=== PATIENT | female | born 1945 | race Caucasian/White ===

== ENCOUNTER 2020-01-25 11:20 | Emergency (ER) | payer OTHER ==
--- OUTSIDE RECORDS SUMMARY | 2020-01-25 11:31 | XMS REPORT ---
:1945 Author Organization eClinicalWorks Care Team Providers Name Role Phone Morales, Na Provider Role Unavailable Allergies No Known Allergies Problems Problem Type Condition Code Onset Dates Condition Statu s Problem Colles' fracture S52.539A Active Problem Primary insomnia F51.01 Active Problem Migraine, unspecified, G43.911 Activ e intractable, with status migrainosus Problem Iron deficiency anemia due to D50.8 Active dietary causes Problem Complete tear of left rotator cuff M75.122 Active Problem Primary osteoarthritis of left M17.12 Active knee Problem Incomplete tear of left rotator M75.112 Active cuff Problem Osteopenia, unspecified location M85.80 Active Problem Other specific arthropathies, not M12.812 Active elsewhere classified, left shoulder Problem Unspecified rotator cuff tear or M75.102 Active rupture of left shoulder, not specified as traumatic Assessment Hypothyroidism E03.9 Active Problem Depression F32.9 Active Problem Anemia D64.9 Active Problem Other osteoporosis M81.8 Active Problem GERD (gastroesophageal reflux K21.9 Active disease) Problem Disc disorder M51.9 Active Problem Hypothyroidism E03.9 Active Medications Medication Code Code Instructions Start End Status Dosage System Date Date Levothyroxine [facility] [id number] 125 MCG Orally Active 1 tablet Sodium Once a day in the morning on an empty stomach Results No Known Results Summary Purpose eClinicalWorks Submission
--- OUTSIDE RECORDS SUMMARY | 2020-01-25 11:31 | XMS REPORT | Continuity of Care Document ---
:1945 Author Organization [facility] t Address [address] [place] [address] Care Team Providers Name Role Phone Unavailable Unavailable Unavailable Problems Condition Condition Condition Status Onset Resolution Last Treating Co mments Source Name Details Category Date Date Treatment Clinician Date Disc Disc Problem Active [facility] Anemia Anemia Problem [facility] Depression Depression Problem [facility] Osteopenia Osteopenia Problem Active [facility] , [facility] unspecifie unspecifie Me moria d location d location l Outpati ent Clinics Other Other Problem Active [facility] osteoporos osteoporos [facility] Primary Primary Problem Active [facility] insomnia insomnia [facility] Hypothyroi Hypothyroi Problem Active [facility] dism dism [facility] GERD GERD Problem Active [facility] (gastroeso (gastroeso [facility] - phageal phageal [facility]oria reflux reflux l disease) disease) Outpat i ent Clinics Migraine, Migraine, Problem Active [facility] unspecifie unspecifie [facility] - d, d, [facility] intractabl intractabl l e, with e, with Outpati status status ent migrainosu migrainosu Cl inics s s Colles' Colles' Problem Active [facility] fracture [facility] Incomplete Incomplete Problem Active [facility] tear of tear of [facility] - left left [facility] rotator rotator l cuff cuff Outpati ent Clinics Unspecifie Unspecifie Problem Active [facility] d rotator d rotator Luke s - cuff tear cuff tear Placido mirella or rupture or rupture l of left of left Outpati shoulder, shoulder, ent not not Clinics specified specified as as traumatic traumatic Complete Complete Problem [facility] of [facility] left left [facility] rotator rotator l cuff cuff Outpati ent Clinics Other Other Problem Active [facility] specific specific [facility] - arthropath arthropath Me moria ies, not ies, not l elsewhere elsewhere Outp ati classified classified en t , left , left Clinics shoulder shoulder Iron Iron Problem Active [facility] deficiency deficiency [facility] - anemia due anemia due Me moria to dietary to dietary l causes causes Outpati ent Clinics Primary Primary Problem Active [facility] osteoarthr osteoarthr [facility] - itis of itis of [facility] left knee left knee l Outpati ent Clinics Allergies, Adverse Reactions, Alerts Allergy Allergy Status Severity Reaction(s) Onset Inactive Treating Comm ents Source Name Type Date Date Clinician shellfis Adverse Active hives [facility] Reaction [facility] Medications Ordered Filled Start Stop Current Ordering Indication Dosage Frequency Signature Comments Components Source Medication Medication Date Date Medication? Clinician (SIG) Name Name Levothyroxi Levothyroxi Yes Na Morales [address] [facility] ne Sodium ne Sodium in the [place] - morning on [facility] an empty l stomach [facility] Procedures This patient has no known procedures. Encounters Start End Encounter Admission Attending Care Care Encounter Source Date/Time Date/Time Type Type Clinicians Facility Department ID 2019-12-24 2019-12-24 [facility] [id number] [facility] 14:58:00 14:58:00 [facility] Medicine [facility] 2019-09-24 2019-09-24 [facility] [id number] [facility] 10:56:00 10:56:00 [facility] Medicine [facility] 2019-08-03 2019-08-03 [facility] [id number] [facility] 08:40:00 08:40:00 [facility] Medicine l [facility] 2019-06-01 2019-06-01 [facility] [id number] [facility] 08:20:00 08:20:00 [facility] Medicine [facility] 2019-05-25 2019-05-25 [facility] [id number] 08:06:00 08:06:00 t [place] [employer] [facility] ent Clinics 2019-04-02 2019-04-02 [facility] [id number] [address] 08:00:00 08:00:00 t [place] [employer] [facility] ent Clinics 2019-03-02 2019-03-02 [facility] [id number] [address] 08:20:00 08:20:00 t [place] [employer] [facility] ent Clinics 2019-02-20 2019-02-20 [facility] [id number] [address] 06:13:00 06:13:00 t [place] [employer] [facility] ent Clinics 2018-09-29 2018-09-29 [facility] [id number] 09[facility]00:00 09:00:00 t Bone [facility] ent Clinics 2018-06-30 2018-06-30 [facility] [id number] 08:45:00 08:45:00 t ADITU [facility] ent Clinics 2018-03-12 2018-03-12 [facility] [id number] [facility] 12:07:00 12:07:00 t [facility] ent Clinics 2018-03-11 2018-03-11 [facility] [id number] [facility] 09:00:00 09:00:00 t [facility] ent Clinics 2018-03-03 2018-03-03 [facility] [id number] [facility] 14:06:00 14:06:00 t Bone [facility] ent Clinics 2018-02-28 2018-02-28 [facility] [id number] 11:27:00 11:27:00 t Bone [facility] ent Clinics 2018-02-27 2018-02-27 Outpatient Alec Michaelt [id number] [facility] 09:00:00 09:00:00 t [facility] ent Clinics 2018-01-29 2018-01-29 Outpatient Alec Michaelt [id number] [facility] 08:13:00 08:13:[facility] [address] [facility] [place] [facility] ent [facility] 2018-01-28 2018-01-28 Outpatient Alec Michaelt [id number] 08:15:00 08:15:[address] [employer] [facility] ent [facility] Results This patient has no known results.
--- NOTE | 2020-01-25 12:12 | RAD REPORT ---
EXAM DESCRIPTION: CT - Head Brain Wo Cont - 01/25/2020 12:01 pm CLINICAL HISTORY: Head injury status post fall COMPARISON: None TECHNIQUE: Computed axial tomography of the head was obtained. IV contrast was not requested. All CT scans are performed using dose optimization technique as appropriate and may include automated exposure control or mA/KV adjustment according to patient size. FINDINGS: Left frontal scalp hematoma. An intracranial bleed is not noted The ventricles are normal in caliber. No extra-axial fluid collection is noted. Fluid within the sinuses/ mastoids is not seen. IMPRESSION: No acute intracranial abnormality is seen. If patient's symptoms persist MRI of the bra in would be recommended.
[2020-01-25] MEDS ORDERED: DERMABOND SKIN ADHESIVE TOP ONE (12:32)
--- NOTE | 2020-01-25 12:40 | EDPHYS ---
Physician Documentation [facility] Name: Keke Wills Age: 74 yrs Sex: Female : 1945 Arrival Date: 01/25/2020 Time: 11:22 Bed 25 Private MD: Carolyn Morales ED Physician Nader Cifuentes HPI: 01/24 12:32 This 74 yrs old Female presents to ER via Ambulatory with complaints of Fall rn Injury, Facial Injury. 12:32 Details of fall: The patient fell from an upright position, while standing. Onset: The rn symptoms/episode began/occurred just prior to arrival. Associated injuries: The patient sustained injury to the head. Severity of symptoms: At their worst the symptoms were mild, in the emergency department the symptoms are unchanged. The patient has not experienced similar symptoms in the past. Reports tripped over lawnmower, + left forehead injury and laceration, no LOC, no bloodthinners, no vomiting, remembers all events. . Historical: - Allergies: 11:39 SHELLFISH; ca1 - PMHx: 11:39 chronic back pain; Depression; Hypothyroidism; ca1 - PSHx: 11:39 Tonsillectomy; Hysterectomy; ; bunion surgery; Cholecystectomy; ulcer surgery; ca1 - Immunization history:: Adult Immunizations up to date, Last tetanus immunization: unknown. - Social history:: Smoking status: Patient denies any tobacco usage or history of. - Immunization history: Last tetanus immunization: - up to date. - Family history:: not pertinent. - Hospitalizations: : No recent hospitalization is reported. ROS: 12:32 Constitutional: Negative for fever, chills, and weight loss, Eyes: Negative for injury, rn pain, redness, and discharge, Neck: Negative for injury, pain, and swelling, Cardiovascular: Negative for chest pain, palpitations, and edema, Respiratory: Negative for shortness of breath, cough, wheezing, and pleuritic chest pain, Abdomen/GI: Negative for abdominal pain, nausea, vomiting, diarrhea, and constipation, MS/Extremity: Negative for injury and deformity, Skin: + laceration left forehead Neuro: Negative for weakness, numbness, tingling, and seizure. Exam: 12:32 Constitutional: This is a well developed, well nourished patient who is awake, alert, rn and in no acute distress. Head/Face: Normocephalic, + left forehead hematoma and 2cm superficial laceration at center of hematoma. No depression. Eyes: Pupils equal round and reactive to light, extra-ocular motions intact. Lids and lashes normal. Conjunctiva and sclera are non-icteric and not injected. Cornea within normal limits. Neck: Trachea midline, no masses palpated Cardiovascular: Regular rate and rhythm No pulse deficits. Respiratory: No increased work of breathing, no retractions or nasal flaring. Abdomen/GI: soft, non-tender Skin: Warm, dry MS/ Extremity: Pulses equal, no cyanosis. Neurovascular intact. Full, normal range of motion. Equal circumference. Neuro: Awake and alert, GCS 15, oriented to person, place, time, and situation. Cranial nerves II-XII grossly intact. Motor strength 5/5 in all extremities. Sensory grossly intact. Cerebellar exam normal. Vital Signs: 11:36 BP 159 / 84; Pulse 78; Resp 16 S; Temp 98.8(O); Pulse Ox 99% on R/A; Weight 59.87 kg ca1 (R); Height 5 ft. 1 in. (154.94 cm) (R); 13:00 BP 147 / 79; Pulse 71; Resp 17; Temp 98.5; Pulse Ox 98% ; bp 11:36 Body Mass Index 24.94 (59.87 kg, 154.94 cm) ca1 Karel Coma Score: 11:45 Eye Response: spontaneous(4). Verbal Response: oriented(5). Motor Response: obeys bp commands(6). Total: 15. Trauma Score (Adult): 11:45 Eye Response: spontaneous(1); Verbal Response: oriented(1); Motor Response: obeys bp commands(2); Systolic BP: > 89 mm Hg(4); Respiratory Rate: 10 to 29 per min(4); Karel Score: 15; Trauma Score: 12 Laceration: 12:32 Wound Repair of 2cm ( 0.8in ) subcutaneous laceration to left forehead. Distal rn neuro/vascular/tendon intact. Wound prep: Extensive cleansing by nurse, Wound explored. Skin closed with 1 thin layer Adhesive skin closure using Dermabond. Patient tolerated well. MDM: 11:41 Patient medically screened. rn 12:32 Differential diagnosis: abrasion, closed head injury, contusion, laceration. Data rn reviewed: vital signs, nurses notes, radiologic studies, CT scan, and as a result, I will discharge patient. Counseling: I had a detailed discussion with the patient and/or guardian regarding: the historical points, exam findings, and any diagnostic results supporting the discharge/admit diagnosis, radiology results, the need for outpatient follow up, to return to the emergency department if symptoms worsen or persist or if there are any questions or concerns that arise at home. Response to treatment: the patient's symptoms have mildly improved after treatment, and as a result, I will discharge patient. Special discussion: Based on the patient's history, exam and DX evaluation, there is no indication for emergent intervention or inpatient TX. It is understood by the patient/guardian that if the SXs persist or worsen they need to return immediately for re-evaluation. I discussed with the patient/guardian in detail that at this point there is no indication for admission to the hospital. It is understood, however, that if the symptoms persist or worsen the patient needs to return immediately for re-evaluation. 01/24 11:47 Order name: CT Head Brain wo Cont; Complete Time: 12:13 rn 01/24 11:47 Order name: Wound Care; Complete Time: 12:39 rn 01/24 12:41 Order name: Dermabond; Complete Time: 12:41 ss Administered Medications: No medications were administered Disposition: 01/25/20 12:39 Discharged to Home. Impression: Superficial injury of head, Facial laceration. - Condition is Stable. - Discharge Instructions: Head Injury, Adult, Facial Laceration. - Medication Reconciliation Form, Thank You Letter, Antibiotic Education, Prescription Opioid Use form. - Follow up: Private Physician; When: As needed; Reason: Recheck today's complaints, Re-evaluation by your physician. - Problem is new. - Symptoms have improved. Signatures: Dispatcher [employer] EDMS Nader Cifuentes MD MD rn Smirch, Shelby, RN RN ss Peltier, Brian, RN RN bp Acob, Cheryl, RN RN [facility] Corrections: (The following items were deleted from the chart) 12:35 12:32 Constitutional: This is a well developed, well nourished patient who is awake, rn alert, and in no acute distress. Head/Face: Normocephalic, + left forehead hematoma and 2cm superficial laceration at center of hematoma. No depression. Neck: Trachea midline, no masses palpated Cardiovascular: Regular rate and rhythm No pulse deficits. Respiratory: No increased work of breathing, no retractions or nasal flaring. Abdomen/GI: soft, non-tender Skin: Warm, dry MS/ Extremity: Pulses equal, no cyanosis. Neurovascular intact. Full, normal range of motion. Equal circumference. Neuro: Awake and alert, GCS 15, oriented to person, place, time, and situation. Cranial nerves II-XII grossly intact. Motor strength 5/5 in all extremities. Sensory grossly intact. Cerebellar exam normal. rn 13:07 11:45 Immunization history bp bp 13:11 12:39 01/25/2020 12:39 Discharged to Home. Impression: Superficial injury of head; bp Facial laceration. Condition is Stable. Forms are Medication Reconciliation Form, Thank You Letter, Antibiotic Education, Prescription Opioid Use. Follow up: Private Physician; When: As needed; Reason: Recheck today's complaints, Re-evaluation by your physician. Problem is new. Symptoms have improved. rn
--- NOTE | 2020-01-25 12:40 | ER ---
Nurse's Notes [facility] Name: Keke Wills Age: 74 yrs Sex: Female : 1945 Arrival Date: 01/25/2020 Time: 11:22 Bed 25 Private MD: Carolyn Morales Diagnosis: Superficial injury of head;Facial laceration Presentation: 01/24 11:36 Chief complaint: Patient states: Tripped over a principal system software engineer on the driveway. Fell ca1 forward, hit head on the L side. Lac on L eyebrow, abrasion on L elbow and R thumb. Denies LOC. Denies taking blood thinners. Reports dizziness and headache at this time. Coronavirus screen: Client denies travel out of the [place] in the last 14 days. At this time, the client does not indicate any symptoms associated with coronavirus-19. Ebola Screen: Patient negative for fever greater than or equal to 101.5 degrees Fahrenheit, and additional compatible Ebola Virus Disease symptoms Patient denies exposure to infectious person. Patient denies travel to an Ebola-affected area in the 21 days before illness onset. No symptoms or risks identified at this time. Initial Sepsis Screen: Does the patient meet any 2 criteria? No. Patient's initial sepsis screen is negative. Does the patient have a suspected source of infection? No. Patient's initial sepsis screen is negative. Risk Assessment: Do you want to hurt yourself or someone else? Patient reports no desire to harm self or others. Onset of symptoms was January 25, 2020. 11:36 Method Of Arrival: Ambulatory ca1 11:36 Acuity: [place] 2 ca1 11:45 Care prior to arrival: None. Mechanism of Injury: Fall from standing position. Trauma bp event details: Injury occurred in the [facility], Injury occurred: at home. Injury occurred: January 25, 2020 Injury occurred at: 11:00. Trauma Activation: Not Applicable Physician: ED Physician; Name: ; Notified At: ; Arrived At: Physician: General Surgeon; Name: ; Notified At: ; Arrived At: Physician: Radiology; Name: ; Notified At: ; Arrived At: Physician: Respiratory; Name: ; Notified At: ; Arrived At: Physician: Lab; Name: ; Notified At: ; Arrived At: Historical: - Allergies: 11:39 SHELLFISH; ca1 - PMHx: 11:39 chronic back pain; Depression; Hypothyroidism; ca1 - PSHx: 11:39 Tonsillectomy; Hysterectomy; ; bunion surgery; Cholecystectomy; ulcer surgery; ca1 - Immunization history:: Adult Immunizations up to date, Last tetanus immunization: unknown. - Social history:: Smoking status: Patient denies any tobacco usage or history of. - Immunization history: Last tetanus immunization: - up to date. - Family history:: not pertinent. - Hospitalizations: : No recent hospitalization is reported. Screenin:15 Abuse screen: Denies threats or abuse. Denies injuries from another. Tuberculosis ss screening: No symptoms or risk factors identified. Never had TB. Fall Risk None identified. 12:41 Nutritional screening: No deficits noted. ss Primary Survey: 11:45 NO uncontrolled hemorrhage observed. A: The patient is alert. Airway: patent. bp Breathing/Chest: Respiratory pattern: regular, Respiratory effort: spontaneous, unlabored. Circulation: Skin color: pink, Skin temperature: warm, dry. Disability Alert. Exposure/Environment: There is no evidence of uncontrolled external bleeding. 13:00 Reassessment Airway Airway Patent Breathing/Chest Respiratory pattern Regular bp Respiratory effort Spontaneous Unlabored Circulation Color [place] Disability Alert. Assessment: 11:45 General: Appears in no apparent distress. uncomfortable, Behavior is cooperative, bp appropriate for age, anxious. Pain: Complains of pain in LEFT HEAD, LEFT ELBOW. Neuro: Level of Consciousness is awake, alert, obeys commands, Oriented to person, place, time, situation, Appropriate for age. EENT: No deficits noted. Cardiovascular: No deficits noted. Respiratory: No deficits noted. GI: No signs and/or symptoms were reported involving the gastrointestinal system. : No signs and/or symptoms were reported regarding the genitourinary system. Derm: No deficits noted. Musculoskeletal: Reports pain in left elbow. Injury Description: Abrasion sustained to left elbow Laceration sustained to left BROW is not bleeding. 13:00 Reassessment: PT D/C HOME AFTER LAC REPAIR. DX WITH SUPERFICIAL HEAD INJURY S/P FALL. bp Vital Signs: 11:36 BP 159 / 84; Pulse 78; Resp 16 S; Temp 98.8(O); Pulse Ox 99% on R/A; Weight 59.87 kg ca1 (R); Height 5 ft. 1 in. (154.94 cm) (R); 13:00 BP 147 / 79; Pulse 71; Resp 17; Temp 98.5; Pulse Ox 98% ; bp 11:36 Body Mass Index 24.94 (59.87 kg, 154.94 cm) ca1 Karel Coma Score: 11:45 Eye Response: spontaneous(4). Verbal Response: oriented(5). Motor Response: obeys bp commands(6). Total: 15. Trauma Score (Adult): 11:45 Eye Response: spontaneous(1); Verbal Response: oriented(1); Motor Response: obeys bp commands(2); Systolic BP: > 89 mm Hg(4); Respiratory Rate: 10 to 29 per min(4); [place] Score: 15; Trauma Score: 12 ED Course: 11:22 Patient arrived in ED. ag5 11:22 Carolyn Morales MD is Private Physician. ag5 11:39 Triage completed. ca1 11:39 Arm band placed on right wrist. ca1 11:41 Nader Cifuentes MD is Attending Physician. rn 11:45 Patient has correct armband on for positive identification. Bed in low position. Call bp light in reach. Side rails up X2. 11:45 Patient maintains SpO2 saturation greater than 95% on room air. Thermoregulation: warm bp blanket given to patient. 11:56 Tavia Tenorio, MICA is Primary Nurse. ss 12:01 CT Head Brain wo Cont In Process Unspecified. EDMS 12:30 Assist provider with laceration repair on left eye using Dermabond. bp 12:39 Patient did not have IV access during this emergency room visit. Wound care: to ss laceration located on L brow was cleaned with with STEVEN Hicks, Patient tolerated well. Administered Medications: No medications were administered Intake: 11:45 PO: 0ml; Total: 0ml. bp Output: 11:45 Urine: 0ml; Total: 0ml. bp Outcome: 12:39 Discharge ordered by MD. rn 13:00 Discharged to home ambulatory, with family. bp 13:00 Condition: stable 13:00 Patient's length of stay was not longer than 2 hours. 13:00 Discharge instructions given to patient, Instructed on discharge instructions, follow bp up and referral plans. Demonstrated understanding of instructions, follow-up care. 13:11 Patient left the ED. bp Signatures: Dispatcher [employer] EDMS Nader Cifuentes, MD MD rn Smirch, Tavia, RN RN ss Maikol Maria RN RN bp Juli Alston RN RN [facility] [place] E[place] ag5 Corrections: (The following items were deleted from the chart) 13:07 11:45 Immunization history bp bp 13:10 12:39 No provider procedures requiring assistance completed. bp
[2020-01-25 13:28] VITALS: BP 147/79; TEMP 98.5; O2SAT 98
== END 2020-01-25 13:11 | disposition home or self-care (01) ==
LOC: ER 11:20
PROC: 0JQ10ZZ Repair Face Subcutaneous Tissue and Fascia, Open Approach (ICD-10-PCS; principal; 2020-01-25)
DX: S01.81XA Laceration without foreign body of other part of head, initial encounter (principal); W01.198A Fall on same level from slipping, tripping and stumbling with subsequent striking against other object, initial encounter; Y93.89 Activity, other specified; Y92.9 Unspecified place or not applicable; Z91.013 Allergy to seafood
CPT/HCPCS: 70450; 99284

== ENCOUNTER 2020-02-22 10:04 | Emergency (ER) | payer OTHER ==
--- OUTSIDE RECORDS SUMMARY | 2020-02-22 10:07 | XMS REPORT ---
:1945 Author Organization eClinicalWorks Care Team Providers Name Role Phone Morales, Na Provider Role Unavailable Allergies No Known Allergies Problems Problem Type Condition Code Onset Dates Condition Statu s Problem Primary insomnia F51.01 Active Problem Incomplete tear of left rotator M75.112 Active cuff Problem Osteopenia, unspecified location M85.80 Active Problem Elevated TSH R79.89 Active Problem Primary osteoarthritis of left M17.12 Active knee Problem Dizziness R42 Active Problem Other specific arthropathies, not M12.812 Active elsewhere classified, left shoulder Problem Unspecified rotator cuff tear or M75.102 Active rupture of left shoulder, not specified as traumatic Problem Iron deficiency anemia due to D50.8 Active dietary causes Problem Complete tear of left rotator cuff M75.122 Active Problem Other osteoporosis M81.8 Active Problem Disc disorder M51.9 Active Assessment Hypothyroidism E03.9 Active Problem GERD (gastroesophageal reflux K21.9 Active disease) Problem Hypothyroidism E03.9 Active Problem Depression F32.9 Active Problem Colles' fracture S52.539A Active Problem Anemia D64.9 Active Problem Migraine, unspecified, G43.911 Activ e intractable, with status migrainosus Medications Medication Code Code Instructions Start End Status Dosage System Date Date Levothyroxine NDC 21092524470 125 MCG Orally Inactiv e 1 tablet Sodium Once a day in the morning on an empty stomach Levothyroxine NDC 69862868661 100 MCG Orally Feb 20, Active 1 tablet Sodium Once a day 2020 in the morning on an empty stomach Results No Known Results Summary Purpose eClinicalWorks Submission
--- OUTSIDE RECORDS SUMMARY | 2020-02-22 10:07 | XMS REPORT ---
[...] End Status Dosage System Date Date Levothyroxine [facility] 20870201530 125 MCG Orally Active 1 tablet Sodium Once a day in the morning on an empty stomach Results No Known Results Summary Purpose eClinicalWorks Submission
--- OUTSIDE RECORDS SUMMARY | 2020-02-22 10:07 | XMS REPORT | Continuity of Care Document ---
:1945 Author Organization [facility] t Address [address] [place] [address] Care Team Providers Name Role Phone Unavailable [...] of tear of [facility] - [facility] rotator l cuff cuff Outpati [...] Funmilayo kes - itis of [facility]is [facility] left knee left knee [facility] Elevated Elevated Problem Active [facility] Dizziness Dizziness Problem Active [facility] Allergies, Adverse Reactions, Alerts Allergy Allergy Status Severity Reaction(s) Onset Inactive Treating Comm ents Source Name Type Date Date Clinician shellfis Adverse Active hives [facility] Reaction [facility] Medications Ordered Filled Start Stop Current Ordering Indication Dosage Frequency Signature Comments Components Source Medication Medication Date Date Medication? Clinician (SIG) Name Name Levothyroxi Levothyroxi Yes Na Morales [address] [facility] ne Sodium ne Sodium 9-13 in the [place] - 00:00: morning on Memoria 00 an empty l stomach [facility] Levothyroxi Levothyroxi Yes Na Morales [address] [facility] ne Sodium ne Sodium in the [place] - morning on oria an empty l stomach [facility] Procedures This patient has no known procedures. Encounters Start End Encounter Admission Attending Care Care Encounter Source Date/Time Date/Time Type Type Clinicians Facility Department ID 2020-02-18 2020-02-18 Outpatient Alec Moser [id number] [facility] 20:21:00 20:21:00 [facility] Family [facility] l [facility] 2019-12-24 2019-12-24 Outpatient Alec Michaelt [id number] [facility] 14:58:00 14:58:00 [facility] l [facility] 2019-09-24 2019-09-24 Outpatient Alec Michaelt [id number] [facility] 10:56:00 10:56:00 t [facility] Medicine Outpati ent Clinics 2019-08-03 2019-08-03 [facility] [id number] [facility] 08:40:00 08:40:00 t [facility] Medicine Outpati ent Clinics 2019-06-01 2019-06-01 [facility] [id number] [facility] 08:20:00 08:20:00 t [facility] Medicine Outpati ent Clinics 2019-05-25 2019-05-25 [facility] [id number] 08:06:00 08:06:00 [place] [employer] [facility] Medicine Outpati ent Clinics 2019-04-02 2019-04-02 [facility] [id number] [facility] 08:00:00 08:00:00 t [facility] Outpati ent Clinics 2019-03-02 2019-03-02 [facility] [id number] [facility] 08:20:00 08:20:00 t [facility] Outpati ent Clinics 2019-02-20 2019-02-20 [facility] [id number] [facility] 06:13:00 06:13:00 t [facility] Outpati ent Clinics 2018-09-29 2018-09-29 [facility] [id number] [facility] 09[facility]00:00 09:00:00 [facility] Clin[facility] 2018-06-30 2018-06-30 [facility] [id number] [facility] 08:45:00 08:45:00 t [facility] Outpati ent Clinics 2018-03-12 2018-03-12 [facility] [id number] [facility] 12:07:00 12:07:00 t [facility] 2018-03-11 2018-03-11 [facility] [id number] [facility] 09:00:00 09:00:00 t [facility] 2018-03-03 2018-03-03 [facility] [id number] [facility] 14:06:00 14:06:00 t [facility] 2018-02-28 2018-02-28 [facility] [id number] [facility] 11:27:00 11:27:00 t [facility] Clin[facility] 2018-02-27 2018-02-27 [facility] [id number] [facility] 09:00:00 09:00:00 t [facility] Clin[facility] 2018-01-29 2018-01-29 [place] [id number] [facility] 08:13:00 08:13:00 t [facility] ent Clinics 2018-01-28 2018-01-28 [place] [id number] [facility] 08:15:00 08:15:00 t [facility] ent Clinics Results This patient has no known results.
[2020-02-22] MEDS ORDERED: NA CHLORIDE 0.9% 500 ML ONE (11:04)
[2020-02-22] MEDS ORDERED: MECLIZINE HCL 12.5 MG TAB ONE (11:04)
[2020-02-22] MEDS ORDERED: ONDANSETRON 4 MG/2 ML VIAL ONE (11:04)
[2020-02-22 11:15] LABS: Protime INR 0.97
[2020-02-22 11:16] LABS: Absolute Lymphocytes (CBC) 0.8 K/uL (0.7-4.9); Basophils % 0.7 % (0-1.3); Lymphocytes % 12.4 % (15.3-44.8); MPV 8.4 fL (7.6-11.3)
--- NOTE | 2020-02-22 11:27 | RAD REPORT ---
EXAM DESCRIPTION: [place] Single View02/22/2020 11:10 am CLINICAL HISTORY: Dizziness COMPARISON: 2015 FINDINGS: The lungs appear clear of acute infiltrate. The heart is normal size IMPRESSION: No acute abnormalities displayed
--- NOTE | 2020-02-22 11:38 | RAD REPORT ---
EXAM DESCRIPTION: CT - Head Brain Wo Cont - 02/22/2020 11:20 am CLINICAL HISTORY: Dizziness COMPARISON: January 2020 TECHNIQUE: Computed axial tomography of the head was obtained. IV contrast was not requested. All CT scans are performed using dose optimization technique as appropriate and may include automated exposure control or mA/KV adjustment according to patient size. FINDINGS: An intracranial bleed is not seen . The ventricles are normal in caliber. No extra-axial fluid collection is noted. Fluid within the sinuses/ mastoids is not seen. IMPRESSION: No acute intracranial abnormality is seen. If patient's symptoms persist MRI of the bra in would be recommended.
[2020-02-22 11:39] LABS: ALT/SGPT 25 U/L (12-78); AST/SGOT 20 U/L (15-37); Albumin 3.9 g/dL (3.4-5.0); Alkaline Phosphatase 124 U/L (45-117); BUN Blood Urea Nitrogen 18 mg/dL (7-18); Bicarbonate 28 mmol/L (21-32); Bilirubin Direct < 0.1 mg/dL (0-0.2); Bilirubin Total 0.2 mg/dL (0.2-1.0); Glucose Level 119 mg/dL (74-106); Magnesium 2.1 mg/dL (1.8-2.4); NT PRO-BNP 130 pg/mL (<125); Protein, Total 7.6 g/dL (6.4-8.2); Sodium Level 141 mmol/L (136-145); Troponin (Emerg Dept Use Only) < 0.02 ng/mL (0.0-0.045)
--- NOTE | 2020-02-22 12:35 | EDPHYS ---
Physician Documentation [facility] Name: Keke Wills Age: 74 yrs Sex: Female : 1945 Arrival Date: 02/22/2020 Time: 10:07 Bed 15 Private MD: Carolyn Morales ED Physician Paco Benjamin HPI: 02/21 11:02 This 74 yrs old Female presents to ER via Wheelchair with complaints of pm1 Headache, Dizziness, Vomiting. 11:02 The patient complains of pain to the left base of the skull. pm1 11:02 The patient presents with vertigo. Onset: The symptoms/episode began/occurred this pm1 morning, at 03:00. Context: occurred at home, occurred while the patient was getting up from bed. just prior to the episode the patient experienced no apparent symptoms. Modifying factors: The symptoms are alleviated by closing eyes, the symptoms are aggravated by movement of head, changing position. Associated signs and symptoms: Pertinent positives: headache, nausea, vomiting, Pertinent negatives: chest pain, shortness of breath. Severity of symptoms: in the emergency department the symptoms are unchanged. The patient has not experienced similar symptoms in the past. Historical: - Allergies: 10:19 SHELLFISH; ca1 - PMHx: 10:19 chronic back pain; Depression; Hypothyroidism; ca1 - PSHx: 10:19 Tonsillectomy; ; Hysterectomy; Cholecystectomy; bunion surgery; ulcer surgery; ca1 - Immunization history:: Adult Immunizations up to date. - Social history:: Smoking status: Patient denies any tobacco usage or history of. ROS: 11:02 Constitutional: Negative for fever, chills, and weight loss, ENT: Negative for injury, pm1 pain, and discharge, Neck: Negative for injury, pain, and swelling, Cardiovascular: Negative for chest pain, palpitations, and edema, Respiratory: Negative for shortness of breath, cough, wheezing, and pleuritic chest pain. 11:02 Back: Negative for injury and pain, : Negative for injury, bleeding, discharge, and swelling, MS/Extremity: Negative for injury and deformity, Skin: Negative for injury, rash, and discoloration. 11:02 Abdomen/GI: Positive for nausea and vomiting, Negative for abdominal pain, diarrhea, constipation. 11:02 Neuro: Positive for dizziness, headache, Negative for numbness, tingling, weakness. Exam: 11:02 Constitutional: This is a well developed, well nourished patient who is awake, alert, pm1 and in no acute distress. Head/Face: Normocephalic, atraumatic. 11:02 ENT: Nares patent. No nasal discharge, no septal abnormalities noted. Tympanic membranes are normal and external auditory canals are clear. Oropharynx with no redness, swelling, or masses, exudates, or evidence of obstruction, uvula midline. Mucous membranes moist. Neck: Trachea midline, no thyromegaly or masses palpated, and no cervical lymphadenopathy. Supple, full range of motion without nuchal rigidity, or vertebral point tenderness. No Meningismus. 11:02 Skin: Warm, dry with normal turgor. Normal color with no rashes, no lesions, and no evidence of cellulitis. MS/ Extremity: Pulses equal, no cyanosis. Neurovascular intact. Full, normal range of motion. 11:02 Eyes: Nystagmus: present with right anders gaze. 11:02 Cardiovascular: Exam negative for acute changes, Rate: normal, Rhythm: regular, Pulses: no pulse deficits are appreciated. 11:02 Respiratory: Exam negative for acute changes, respiratory distress, shortness of breath. 11:02 Abdomen/GI: Exam negative for acute changes, Inspection: abdomen appears normal, Palpation: abdomen is soft and non-tender, in all quadrants. 11:02 Neuro: Exam negative for acute changes, Orientation: is normal, Mentation: is normal, Motor: is normal, moves all fours. Vital Signs: 10:16 BP 129 / 70; Pulse 72; Resp 16 S; Temp 97.1(TE); Pulse Ox 98% on R/A; Weight 60.78 kg ca1 (R); Height 5 ft. 1 in. (154.94 cm) (R); 11:55 BP 130 / 68; Pulse 74; Resp 20; Pulse Ox 99% on R/A; Pain 4/10; tw2 12:36 BP 133 / 75; Pulse 76; Resp 15; Pulse Ox 96% on R/A; Pain 2/10; tw2 10:16 Body Mass Index 25.32 (60.78 kg, 154.94 cm) ca1 MDM: 10:38 Patient medically screened. pm1 12:33 Data reviewed: vital signs. Data interpreted: Pulse oximetry: on room air is 99 %. pm1 Interpretation: normal. Counseling: I had a detailed discussion with the patient and/or guardian regarding: the historical points, exam findings, and any diagnostic results supporting the discharge/admit diagnosis, lab results, radiology results, the need for outpatient follow up, to return to the emergency department if symptoms worsen or persist or if there are any questions or concerns that arise at home. 02/21 10:48 Order name: NT PRO-BNP; Complete Time: 11:46 pm02/21 10:48 Order name: Basic Metabolic Panel; Complete Time: 11:46 pm02/21 10:48 Order name: CBC with Diff; Complete Time: 11:39 pm02/21 10:48 Order name: LFT's; Complete Time: : pm02/21 10:48 Order name: Magnesium; Complete Time: 11: pm02/21 10:48 Order name: PT-INR; Complete Time: 11:39 pm02/21 10:48 Order name: CT Head Brain wo Cont; Complete Time: 11: pm02/21 10:48 Order name: Troponin (emerg Dept Use Only); Complete Time: 11:46 pm02/21 10:48 Order name: XRAY Chest (1 view); Complete Time: 11:39 pm02/21 10:48 Order name: EKG; Complete Time: 10:49 pm02/21 10:48 Order name: Cardiac monitoring; Complete Time: 11: pm02/21 10:48 Order name: EKG - Nurse/Tech; Complete Time: 11:27 pm02/21 10:48 Order name: IV Saline Lock; Complete Time: 11: pm02/21 10:48 Order name: Labs collected and sent; Complete Time: 11: pm02/21 10:48 Order name: O2 Per Protocol; Complete Time: 11: pm02/21 10:48 Order name: O2 Sat Monitoring; Complete Time: 11: pm1 Administered Medications: 11:00 Drug: Zofran (Ondansetron) 4 mg Route: IVP; Site: right forearm; tw2 11:58 Follow up: Response: No adverse reaction; Nausea is decreased tw2 11:00 Drug: NS 0.9% 500 ml Route: IV; Rate: bolus; Site: right forearm; tw2 11:57 Follow up: Response: No adverse reaction; IV Status: Completed infusion; IV Intake: tw2 500ml 11:20 Drug: Meclizine 50 mg Route: PO; tw2 11:57 Follow up: Response: No adverse reaction; No change in condition tw2 Disposition: 02/22 08:17 Co-signature as Attending Physician, Paco Benjamin MD I agree with the assessment and citlali plan of care. Disposition: 02/22/20 12:34 Discharged to Home. Impression: Benign paroxysmal vertigo. - Condition is Stable. - Discharge Instructions: Benign Positional Vertigo. - Prescriptions for Zofran ODT 4 mg Oral tablet,disintegrating - place 1 tablet by TRANSLINGUAL route every 8 hours As needed; 12 tablet. Meclizine 25 mg Oral Tablet - take 1 tablet by ORAL route every 8 hours As needed; 30 tablet. - Medication Reconciliation Form, Thank You Letter, Antibiotic Education, Prescription Opioid Use form. - Follow up: Emergency Department; When: As needed; Reason: Worsening of condition. Follow up: Carolyn Morales MD; When: 2 - 3 days; Reason: Recheck today's complaints, Continuance of care, Re-evaluation by your physician. - Problem is new. - Symptoms have improved. Signatures: Dispatcher [employer] EDMS Paco Benjamin MD MD cha Marinas, Patrick, BRICK BURNER HEAD BRICK BURNER HEAD pm1 Riana Guzman RN RN tw2 Juli Alston RN RN ca1 Corrections: (The following items were deleted from the chart) 02/21 12:47 12:34 02/22/2020 12:34 Discharged to Home. Impression: Benign paroxysmal vertigo. tw2 Condition is Stable. Forms are Medication Reconciliation Form, Thank You Letter, Antibiotic Education, Prescription Opioid Use. Follow up: Emergency Department; When: As needed; Reason: Worsening of condition. Follow up: Carolyn Morales; When: 2 - 3 days; Reason: Recheck today's complaints, Continuance of care, Re-evaluation by your physician. Problem is new. Symptoms have improved. pm1
--- NOTE | 2020-02-22 12:35 | ER ---
Nurse's Notes [facility] Name: Keke Wills Age: 74 yrs Sex: Female : 1945 Arrival Date: 02/22/2020 Time: 10:07 Bed 15 Private MD: Carolyn Morales Diagnosis: Benign paroxysmal vertigo Presentation: 02/21 10:16 Chief complaint: Patient states: Dizzy all night, this morning I almost fell over in ca1 the shower and got really nauseated. Threw up on my way here. I also feel very disoriented. I had a head injury a month ago, had a CT and said everything was fine. A\\T\\Ox4. Coronavirus screen: Client denies travel out of the [place] in the last 14 days. At this time, the client does not indicate any symptoms associated with coronavirus-19. Ebola Screen: Patient negative for fever greater than or equal to 101.5 degrees Fahrenheit, and additional compatible Ebola Virus Disease symptoms Patient denies exposure to infectious person. Patient denies travel to an Ebola-affected area in the 21 days before illness onset. No symptoms or risks identified at this time. Initial Sepsis Screen: Does the patient meet any 2 criteria? No. Patient's initial sepsis screen is negative. Does the patient have a suspected source of infection? No. Patient's initial sepsis screen is negative. Risk Assessment: Do you want to hurt yourself or someone else? Patient reports no desire to harm self or others. Onset of symptoms was February 22, 2020. 10:16 Method Of Arrival: Wheelchair ca1 10:16 Acuity: CHESTER 3 ca1 Triage Assessment: 10:34 Headache History: The patient has had previous headaches and this one is similar to tw2 previous episodes. General: Appears in no apparent distress. slender, well groomed, Behavior is calm, cooperative, appropriate for age. Pain: Complains of pain in headache Pain began this morning Also complains of nausea, "feels like i am spinning not the room, closing my eyes helps". 10:49 Pain: Pain currently is 8 out of 10 on a pain scale. tw2 Historical: - Allergies: 10:19 SHELLFISH; ca1 - PMHx: 10:19 chronic back pain; Depression; Hypothyroidism; ca1 - PSHx: 10:19 Tonsillectomy; ; Hysterectomy; Cholecystectomy; bunion surgery; ulcer surgery; ca1 - Immunization history:: Adult Immunizations up to date. - Social history:: Smoking status: Patient denies any tobacco usage or history of. Screenin:35 Abuse screen: Denies threats or abuse. Nutritional screening: No deficits noted. tw2 Tuberculosis screening: No symptoms or risk factors identified. Fall Risk Secondary diagnosis (15 points) impaired mobility. Assessment: 10:34 General: Appears in no apparent distress. slender, well groomed, Behavior is calm, tw2 cooperative, appropriate for age. Pain: Complains of pain in headache. Neuro: Level of Consciousness is awake, alert, obeys commands, Oriented to person, place, Reports dizziness. 10:34 Cardiovascular: Heart tones S1 S2 Patient's skin is warm and dry. Respiratory: Airway tw2 is patent Respiratory effort is even, unlabored, Respiratory pattern is regular, symmetrical, Breath sounds are clear bilaterally. GI: Abdomen is flat, Bowel sounds present X 4 quads. : No signs and/or symptoms were reported regarding the genitourinary system. EENT: No signs and/or symptoms were reported regarding the EENT system. Derm: No signs and/or symptoms reported regarding the dermatologic system. Musculoskeletal: Range of motion: intact in all extremities. 11:56 Reassessment: Patient appears in no apparent distress at this time. Patient and/or tw2 family updated on plan of care and expected duration. Pain level reassessed. Patient is alert, oriented x 3, equal unlabored respirations, skin warm/dry/pink. pt states "nausea is better, but I am still feeling dizzy and still have a headache" 09/17, provider notified. 12:36 Reassessment: Patient appears in no apparent distress at this time. Patient and/or tw2 family updated on plan of care and expected duration. Pain level reassessed. Patient is alert, oriented x 3, equal unlabored respirations, skin warm/dry/pink. Patient states symptoms have improved. 12:47 Reassessment: Patient appears in no apparent distress at this time. Patient and/or tw2 family updated on plan of care and expected duration. Pain level reassessed. Patient is alert, oriented x 3, equal unlabored respirations, skin warm/dry/pink. Patient states feeling better. Patient states symptoms have improved. Vital Signs: 10:16 BP 129 / 70; Pulse 72; Resp 16 S; Temp 97.1(TE); Pulse Ox 98% on R/A; Weight 60.78 kg ca1 (R); Height 5 ft. 1 in. (154.94 cm) (R); 11:55 BP 130 / 68; Pulse 74; Resp 20; Pulse Ox 99% on R/A; Pain 4/10; tw2 12:36 BP 133 / 75; Pulse 76; Resp 15; Pulse Ox 96% on R/A; Pain 2/10; tw2 10:16 Body Mass Index 25.32 (60.78 kg, 154.94 cm) ca1 ED Course: 10:07 Patient arrived in ED. ag5 10:07 Carolyn Morales MD is Private Physician. ag5 10:19 Triage completed. ca1 10:19 Arm band placed on right wrist. ca1 10:20 Placed in gown. Bed in low position. Call light in reach. Pulse ox on. NIBP on. tw2 10:30 Riana Guzman RN is Primary Nurse. tw2 10:38 Jon Edmonds NP is PHCP. pm1 10:38 Paco Benajmin MD is Attending Physician. pm1 11:00 Inserted saline lock: 20 gauge in right forearm, using aseptic technique. Blood tw2 collected. 11:10 XRAY Chest (1 view) In Process Unspecified. EDMS 11:20 CT Head Brain wo Cont In Process Unspecified. EDMS 12:34 Carolyn Morales MD is Referral Physician. pm1 12:46 No provider procedures requiring assistance completed. IV discontinued, intact, tw2 bleeding controlled, No redness/swelling at site. Pressure dressing applied. Administered Medications: 11:00 Drug: Zofran (Ondansetron) 4 mg Route: IVP; Site: right forearm; tw2 11:58 Follow up: Response: No adverse reaction; Nausea is decreased tw2 11:00 Drug: NS 0.9% 500 ml Route: IV; Rate: bolus; Site: right forearm; tw2 11:57 Follow up: Response: No adverse reaction; IV Status: Completed infusion; IV Intake: tw2 500ml 11:20 Drug: Meclizine 50 mg Route: PO; tw2 11:57 Follow up: Response: No adverse reaction; No change in condition tw2 Intake: 11:57 IV: 500ml; Total: 500ml. tw2 Outcome: 12:34 Discharge ordered by MD. pm1 12:46 Discharged to home ambulatory. tw2 12:46 Condition: stable 12:46 Discharge instructions given to patient, Instructed on discharge instructions, follow up and referral plans. medication usage, Demonstrated understanding of instructions, follow-up care, medications, Prescriptions given X 2. 12:47 Patient left the ED. tw2 Signatures: Dispatcher [employer] EDNM Jon Edmonds NP RESEARCH CHEF pm1 Riana Guzman RN RN tw2 Juli Alston RN RN ca1 Lawrence Ely ag5 Corrections: (The following items were deleted from the chart) 12:21 10:34 Neuro: Level of Consciousness is awake, alert, obeys commands, Oriented to tw2 person, place, Reports dizziness, tw2
[2020-02-22 13:00] VITALS: TEMP 97.1
[2020-02-22 13:03] VITALS: BP 133/75; O2SAT 96
--- NOTE | 2020-02-24 05:56 | EKG ---
Test Date: 2020-02-22 Test Time: 11:22:33 Precinct Captain: HUDSON MEASUREMENT RESULTS: Intervals: Rate: 66 HI: 170 QRSD: 82 QT: 436 QTc: 457 [place]: P: 50 HI: 170 QRS: 14 T: 67 INTERPRETIVE STATEMENTS: Normal sinus rhythm Septal infarct, age undetermined Abnormal ECG Compared to ECG 04/12/2016 20:34:10 No significant changes Electronically Signed On 02-24-20 05:50:48 CDT by Ryan Da Silva
== END 2020-02-22 12:47 | disposition home or self-care (01) ==
LOC: ER 10:04
DX: H81.10 Benign paroxysmal vertigo, unspecified ear (principal); R51 Headache; Z91.013 Allergy to seafood
CPT/HCPCS: 96361; 93005; 85025; 80048; 36415; 83735; 85610; 80076; 84484; 83880; 70450; 71045; 96374; 99284; J7040; J2405; J8597